=== PATIENT | female | born 1995 | race Caucasian/White ===

== ENCOUNTER 2022-06-10 17:18 | Emergency (ER) | payer OTHER ==
[2022-06-10 17:41] VITALS: BP 117/68; PULSE 114; RESP 18; TEMP 98.8; BMI 33.6
[2022-06-10] MEDS ORDERED: predniSONE 20 MG TABLET (UD) PO ONE (19:11)
[2022-06-10] MEDS ORDERED: guaiFENesin/D-METHORPHAN HB 10 ML UNIT-DOSE CUPS PO ONE (19:11)
[2022-06-10] MEDS ORDERED: ALBUTEROL SO4 HFA INHALER IH ONE ×2 (19:11→19:15)
[2022-06-10] MEDS ORDERED: predniSONE 20 MG TABLET (UD) ONE (19:15)
[2022-06-10] MEDS ORDERED: guaiFENesin/D-METHORPHAN HB 10 ML UNIT-DOSE CUPS ONE (19:15)
[2022-06-10 22:00] LABS: THROAT:GRP A STREP NOT DETECTED (NOTDETECTED)
== END 2022-06-10 19:47 | disposition home or self-care (01) ==
LOC: JER 17:18 → JERFT 17:18
PROC: 3E0F7GC Introduction of Other Therapeutic Substance into Respiratory Tract, Via Natural or Artificial Opening (ICD-10-PCS; principal; 2022-06-10)
DX: J40 Bronchitis, not specified as acute or chronic (principal)
CPT/HCPCS: 0241U-QW; 71046-TC-FY; 87651; 99284-25